=== PATIENT | male | born 1965 | race Caucasian/White ===

== ENCOUNTER 2018-02-24 20:22 | Emergency (ER) | payer OTHER ==
[~2018-02-24] VITALS: Ht 162.6 cm; Wt 77.1 kg
[2018-02-24 20:29] VITALS: Ht 162.6 cm; Wt 77.1 kg
[2018-02-25 06:42] VITALS: BP 111/74
== END 2018-02-25 06:42 | disposition home or self-care (01) ==
LOC: ED 20:22
DX: F10.129 Alcohol abuse with intoxication, unspecified (principal)
CPT/HCPCS: J7030